=== PATIENT | male | born 1990 | race Caucasian/White ===

== ENCOUNTER 2021-04-19 13:40 | Emergency (ER) | payer SELFPAY ==
[~2021-04-19 13:40] MED LIST: CLARITIN10 MG PO; CYCLOBENZAPRINE10 MG PO; HYDROCODONE BIT1 T11 PO; MEDROL DOSEPAK4 MG PO; Motrin,Rufen800 MG PO; NORCO 325 MG-51 TAB PO; PEN-V500 MG PO; PENICILLIN VK500 MG PO; PERIDEX 480 ML480 ML PO; Peridex 473 ML473 ML PO
[2021-04-19] MEDS ORDERED: AMOXICILLIN875 MG PO (14:16)
== END 2021-04-19 14:21 | disposition home or self-care (01) ==
LOC: ED 13:40
DX: K04.7 Periapical abscess without sinus (principal); Z79.2 Long term (current) use of antibiotics; Z79.899 Other long term (current) drug therapy; Z98.890 Other specified postprocedural states